=== PATIENT | male | born 1955 | race Caucasian/White ===

== ENCOUNTER 2023-09-21 06:20 | Day surgery (SDC) | payer OTHER ==
[~2023-09-21] VITALS: Ht 170.2 cm; Wt 70.8 kg
[2023-09-21] MEDS ORDERED: BUPIVACAINE MPF 0.25% 10 ML VIAL INJ ONE (07:49)
[2023-09-21] MEDS ORDERED: LIDOCAINE/EPI MPF 1%1:200000 30 ML VIAL INJ ONE (07:49)
[2023-09-21] MEDS ORDERED: PROPOFOL 200 MG/20 ML VIAL IV ONE (08:48)
[2023-09-21] MEDS ORDERED: ACETAMINOPHEN 100 ML IV ONE (08:52)
[2023-09-21] MEDS ORDERED: fentaNYL citrate 0.05 MG/ML VIAL ONE (08:56)
[2023-09-21] MEDS ORDERED: MIDAZOLAM 2 MG/2 ML VIAL ONE (08:56)
[2023-09-21] MEDS: HYDROmorphone 1 MG/ML AMP IVP PRN ×4 (09:50→10:20)
[2023-09-21] MEDS ORDERED: HYDROmorphone PFS 2 MG/ML SYR ONE (09:56)
== END 2023-09-21 11:08 | disposition home or self-care (01) ==
LOC: MDS 06:20 → MMU 06:22 → MDS 11:08
PROVIDERS: ATTEND Surgery
DX: K64.8 Other hemorrhoids (principal); I10 Essential (primary) hypertension; F41.9 Anxiety disorder, unspecified
CPT/HCPCS: 46260; 71045; 88304; 93005; J1170; J2001; J2250; J2704; J3010; J3490